=== PATIENT | female | born 1970 | race Caucasian/White ===

== ENCOUNTER → 2019-10-11 08:24 | Outpatient (CLI) | payer BC, SELFPAY ==
--- NOTE | ~2019-10-11 | XR_ITS ---
EXAMINATION: HAND-MICHI ARTHRITIS 3+VIEWS DATE: 10/11/2019 08:45 INDICATION: Right hand pain TECHNIQUE: Posteroanterior, lateral, and oblique views of the left and of the right hands as well as a ballcatchers view of both hands were obtained. COMPARISON: None. FINDINGS: Alignment is normal. No fracture. Relatively symmetric mild polyarticular osteoarthritis characterize d by mild nonuniform joint space narrowing and/or tiny marginal osteophytes at the distal radioulnar joints and at multiple interphalangeal joints with distal predominance. No erosions to suggest an inf lammatory arthritis. IMPRESSION: 1. Typical distribution of mild polyarticular osteoarthritis at the bilateral hands and wrists. Reviewed, dictated and finalized at location A. IMPRESSION: 1. Typical distribution of mild polyarticular osteoarthritis at the bilateral h ands and wrists.
== END ==
PROVIDERS: PCP Internal Medicine; Visit Provider Internal Medicine
DX: M79.641 Pain in right hand (principal); M79.642 Pain in left hand; M19.042 Primary osteoarthritis, left hand; M19.041 Primary osteoarthritis, right hand
CPT/HCPCS: 73130

== ENCOUNTER → 2020-01-17 12:48 | Outpatient (CLI) | payer BC, SELFPAY ==
--- NOTE | ~2020-01-17 | XR_ITS ---
XR knee RT 3V, XR knee LT 3V 01/17/2020 13:53 Indication: Polyarthralgias Procedure: 4 views of each knee Comparison: No prior studies for comparison. Findings: There is mild osteoarthritis of the knees bilaterally involving all compartments. No acute fracture or traumatic malalignment. No significant joint effusion. No radiopaque foreign bodies. 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 Reviewed, dictated and finalized at location B. NER CHIEF Impression: 1: Mild bilateral tricompartment osteoarthritis of the knees. 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
== END ==
PROVIDERS: PCP Internal Medicine; Visit Provider Physician Assistant Medical
DX: M17.0 Bilateral primary osteoarthritis of knee (principal)
CPT/HCPCS: 73562

== ENCOUNTER 2020-03-17 15:28 | Outpatient (CLI) | payer BC, SELFPAY ==
--- NOTE | ~2020-03-17 | US_ITS ---
US pelvic complete w TV DATE: 03/17/2020 15:46 INDICATION: Menorrhagia TECHNIQUE: Real-time imaging via transabdominal and transvaginal approaches COMPARISON: 02/02/2016 pelvic ultrasound FINDINGS: The uterus measures 9.1 cm height, 5.1 cm AP and 5.8 cm transverse dimension. The central e ndometrial echo complex measures 7.1 mm, normal. Small uterine cervical nabothian cyst. Right ovary measures 3.7 x 2.7 x 3.2 cm with vascular flow. There is a 2 x 1.6 x 2.3 cm right ovarian cyst. Left ovary measures 2.4 x 1.4 x 2.7 cm, with vascular flow. No pelvic mass or abnormal free pelvic fluid collection is detected. IMPRESSION: 2.3 cm right ovarian cyst Reviewed, dictated and finalized at Location A. Reviewed, dictated and finalized at location A. UET CHEF IMPRESSION: 2.3 cm right ovarian cyst
== END 2020-03-17 15:29 ==
PROVIDERS: Visit Provider Obstetrics & Gynecology
DX: N93.9 Abnormal uterine and vaginal bleeding, unspecified (principal); N83.201 Unspecified ovarian cyst, right side
CPT/HCPCS: 76830; 76856

== ENCOUNTER → 2020-11-13 16:02 | Outpatient (CLI) | payer BC, SELFPAY ==
--- NOTE | ~2020-11-13 | MM_ITS ---
EXAMINATION: MM screening [facility] BI w shama HISTORY: Screening TECHNIQUE: Craniocaudal and mediolateral oblique 3-D tomosynthesis images were obtained and synthetic 2-D images were generated. CAD analysis was submitted and interpreted. COMPARISON: Comparison to multiple prior studies sequentially, with oldest reviewed study dated 08/2013. BREAST PARENCHYMAL COMPOSITION: There are scattered areas of fibroglandular density. FINDINGS: There is no evidence of suspicious mass, calcification, or architectural distortion to sugg est malignancy in either breast. There has been no suspicious interval change. IMPRESSION: 1. No mammographic evidence of malignancy. 2. Recommend routine screening mammography in one year. BI-RADS Category 1: Negative Reviewed, dictated and finalized at location A.
== END ==
PROVIDERS: PCP Internal Medicine; Visit Provider Obstetrics & Gynecology
DX: Z12.31 Encounter for screening mammogram for malignant neoplasm of breast (principal)
CPT/HCPCS: 77063; 77067

== ENCOUNTER 2021-04-10 16:51 | Outpatient (CLI) | payer BC, SELFPAY ==
--- NOTE | ~2021-04-10 | CT_ITS ---
EXAMINATION: CT soft tissue neck wo con DATE: 04/10/2021 17:49 INDICATION: Neck soft tissue swelling, mass, lump TECHNIQUE: Computed tomography (CT) of the neck was performed without intravenous contrast. The dose- length product (DLP) was 577.25 mGy-cm. Automated exposure control and iterative reconstruction techn ique were employed. COMPARISON: 08/01/2016 FINDINGS: Evaluation is limited by the absence of intravenous contrast. There is a polyp or mucous re tention cyst of the left maxillary sinus. The thyroid gland is unremarkable. The submandibular and pa rotid glands are symmetric. There is no lymphadenopathy. There are no masses identified. The vasculat ure is patent. The airway is unremarkable. There are no osseous abnormalities. The orbits are unremar kable. The superior mediastinum is unremarkable. Median sternotomy wires are noted. There is a 1.8 x 0.9 cm soft tissue density in the subcutaneous tissues of the anterior chest wall corresponding to th e area of clinical concern. A 2.1 x 1.8 cm similar-appearing soft tissue density is seen just inferio rly in the anterior subcutaneous tissues of the chest wall. IMPRESSION: 1. Soft tissue densities in the anterior chest wall, one of which corresponds to the area of clinical concern, which may reflective postoperative hematoma or scarring. Soft tissue mass would be less lik chris however would correlate with pathology of the resected anterior mediastinal mass to assess for pr obability of recurrent or metastatic mass. Reviewed, dictated and finalized at location F. [employer] IMPRESSION: 1. Soft tissue densities in the anterior chest wall, one of which corresponds t o the area of clinical concern, which may reflective postoperative hematoma or scarring. Soft tissue mass would be less likely however would correlate with pa thology of the resected anterior mediastinal mass to assess for probability of recurrent or metastatic mass.
[2021-04-10 17:24] LABS: Basophils Absolute Auto 0.1 K/mm3 (0.0-0.1); Basophils Percent Auto 0.7 % (0.2-1.2); Eosinophils Absolute Auto 0.5 K/mm3 (0-0.3); Eosinophils Percent Auto 4.4 % (0-4.4); Hematocrit 33.1 % (37.0-47.0); Hemoglobin 10.5 g/dL (12.0-15.0); Immature Granulocyte Absolute 0.04 K/mm3 (0.00-0.031); Immature Granulocyte Percent A 0.4 % (0-0.5); Lymphocytes Absolute Auto 2.35 K/mm3 (0.9-3.2); Lymphocytes Percent Auto 22.5 % (18.3-44.2); Mean Corpuscular HGB Conc 31.7 g/dl (32-36); Mean Corpuscular Hemoglobin 24.6 pg (26-34); Mean Corpuscular Volume 77.5 fl (80-100); Mean Platelet Volume 9.1 fl (7.4-10.4); Monocytes Absolute Auto 0.7 K/mm3 (0.1-0.6); Monocytes Percent Auto 7.1 % (2.6-8.5); Neutrophils Absolute Auto 6.8 K/mm3 (1.3-6.7); Neutrophils Percent Auto 64.9 % (45.5-73.1); Platelet Count Result 331 k/mm3 (150-375); Red Blood Count 4.27 M/mm3 (4.2-5.4); Red Cell Distribution Width 15.1 % (11.5-14.5); White Blood Count 10.5 K/mm3 (4.5-10.0)
[2021-04-10 17:40] LABS: Anion Gap 5 mmol/L (8-16); Blood Urea Nitrogen 16 mg/dL (7-17); CRP 2.1 mg/dL (<1.0); Calcium 8.8 mg/dL (8.4-10.2); Carbon Dioxide 26 mmol/L (22-30); Chloride 105 mmol/L (98-107); Estimated Glomerular Filt Rate > 60; Glucose 93 mg/dL (65-110); Potassium 4.1 mmol/L (3.4-5.0); Sodium 136 mmol/L (137-145)
[2021-04-10 17:58] LABS: Erythrocyte Sedimentation Rate 39 mm/hr (0-20)
== END 2021-04-10 16:52 | disposition home or self-care (01) ==
LOC: ANHLAB 16:56
PROVIDERS: PCP Internal Medicine; Visit Provider Internal Medicine
DX: R22.2 Localized swelling, mass and lump, trunk (principal); Z51.81 Encounter for therapeutic drug level monitoring; Z79.899 Other long term (current) drug therapy
CPT/HCPCS: 36415; 70490; 80048; 85025; 85652; 86140

== ENCOUNTER 2021-07-26 09:41 | Outpatient (CLI) | payer BC, SELFPAY ==
--- NOTE | ~2021-07-26 | XR_ITS ---
EXAMINATION: XR sternum min 2V INDICATION: Localized swelling, mass, lump of the trunk TECHNIQUE: Two views of the sternum are obtained. COMPARISON: CT, 04/10/2021 FINDINGS: There appears to be persistent anterior soft tissue swelling over the upper sternum in the areas seen on prior CT. Changes of median sternotomy are noted. There are also surgical clips in the anterior mediastinum. The retrosternal fat plane of the upper mediastinum appears to be intact. No ac ewiiaapaayp osseous findings are evident. The visualized portions of the thorax are unremarkable. IMPRESSION: 1. Apparent persistent soft tissue swelling anterior to the upper sternum without definite interval c hange when compared to the prior CT examination. Reviewed, dictated and finalized at location A. IMPRESSION: 1. Apparent persistent soft tissue swelling anterior to the upper sternum witho ut definite interval change when compared to the prior CT examination.
== END 2021-07-26 09:42 | disposition home or self-care (01) ==
PROVIDERS: PCP Internal Medicine; Visit Provider Internal Medicine
DX: R22.2 Localized swelling, mass and lump, trunk (principal)
CPT/HCPCS: 71120

== ENCOUNTER → 2023-04-18 09:55 | Outpatient (CLI) | payer BC, SELFPAY ==
--- NOTE | ~2023-04-18 | MM_ITS ---
EXAMINATION: MM screening [facility] BI w shama HISTORY: Screening TECHNIQUE: Craniocaudal and mediolateral oblique 3-D tomosynthesis images were obtained and synthetic 2-D images were generated. CAD analysis was submitted and interpreted. COMPARISON: Comparison to multiple prior studies sequentially, with oldest reviewed study dated 02/2014. BREAST PARENCHYMAL COMPOSITION: There are scattered areas of fibroglandular density. FINDINGS: There is no evidence of suspicious mass, calcification, or architectural distortion to sugg est malignancy in either breast. There has been no suspicious interval change. IMPRESSION: 1. No mammographic evidence of malignancy. 2. Recommend routine screening mammography in one year. BI-RADS Category 1: Negative Reviewed, dictated and finalized at location A. 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
== END ==
PROVIDERS: PCP Obstetrics & Gynecology; Visit Provider Obstetrics & Gynecology
DX: Z12.31 Encounter for screening mammogram for malignant neoplasm of breast (principal)
CPT/HCPCS: 77063; 77067